=== PATIENT | female | born 1985 | race Caucasian/White ===

== ENCOUNTER 2018-08-19 21:50 | Inpatient (IN) | payer OTHER ==
[2018-08-19] MEDS: DEXTROSE 5%-LACTATED RINGERS 1,000 ML IV SCH (22:00)
[2018-08-19 22:47] VITALS: BMI 26.2
[2018-08-19 23:04] LABS: BASO % 0.1 % (0-2.0); EOS % 0.6 % (0-4.5); HEMATOCRIT 35.3 % (32.4-45.2); HEMOGLOBIN 12.4 GM/dL (10.7-15.3); LYMPH % 17.2 % (8-40); MCH 35.4 pg (25.7-33.7); MCHC 35.3 g/dl (32.0-36.0); MEAN CELL VOLUME 100.4 fl (80-96); MEAN PLT VOLUME 8.7 fl (7.5-11.1); NEUT % 75.1 % (42.8-82.8); PLATELET COUNT 149 K/MM3 (134-434); RBC 3.51 M/mm3 (3.60-5.2); RDW 12.4 % (11.6-15.6); WHITE BLOOD COUNT 7.3 K/mm3 (4.0-10.0)
[2018-08-19 23:20] LABS: INR 0.91 (0.83-1.09); PROTHROMBIN TIME (PATIENT) 10.7 SEC (9.7-13.0)
--- NOTE | 2018-08-19 23:22 | HP ---
Past Medical History - Admission History of Present Illness: 32 yo @ 38 2/7 wks by first trimester ultrasound, EDC 08/31/2018 uncomplicated Patient presents with chief complaint of leakage of clear fluid at 7:30 PM this evening. She reports movement and reports mild contractions. She denies vaginal bleeding. History Source: Patient Limitations to Obtaining History: No Limitations - Past Medical History Cardiovascular: No: HTN Pulmonary: No: Asthma Gastrointestinal: No: GERD ...: 1 ...Para: 0 ...Term: 0 ...: 0 ...Spon : 0 ...Induced : 0 ...Multiple Gestation: 0 ...LMP: 11/29/17 ... Weeks Gestation by Dates: 37.4 ...EDC by Dates: 09/05/18 ...EDC by Sono: 08/31/18 Heme/Onc: No: Anemia - Past Surgical History Past Surgical History: Yes: None Hx Myomectomy: No Hx Transabdominal Cerclage: No - Smoking History Smoking history: Never smoked Have you smoked in the past 12 months: No - Alcohol/Substance Use Hx Alcohol Use: No Home Medications - Allergies Allergies/Adverse Reactions: Allergies Allergy/AdvReac Type Severity Reaction Status Date / Time No Known Allergies Allergy Verified 08/19/18 22:33 - Home Medications Home Medications: Ambulatory Orders Vit 108/Iron/Folic AC [ One Tablet] 1 each PO DAILY 08/19/18 Family Disease History - Family Disease History Family History: Denies Review of Systems - Review of Systems Constitutional: reports: No Symptoms Neck: reports: No Symptoms Cardiovascular: reports: No Symptoms Respiratory: reports: No Symptoms Gastrointestinal: reports: No Symptoms Genitourinary: reports: No Symptoms Neurological: reports: No Symptoms Endocrine: reports: No Symptoms Hematology/Lymphatic: reports: No Symptoms Physical Exam - Maternity Vital Signs: Vital Signs Temperature 98.0 F 08/19/18 22:40 Pulse Rate 71 08/19/18 22:53 Respiratory Rate 20 08/19/18 22:53 Blood Pressure 124/69 08/19/18 22:53 O2 Sat by Pulse Oximetry (%) Constitutional: Yes: Well Nourished, No Distress, Calm HENT: Yes: Atraumatic Neck: Yes: Supple, Trachea Midline Cardiovascular: Yes: Regular Rate and Rhythm Lungs: Clear to auscultation - Abdominal Exam/OB Number of Fetuses: Single Presentation: Vertex Contractions: Yes Regularity: Regular Intensity: Unaware Monitor Mode: External Heart Rate (range): 145 Category: I Accelerations: Non-Uniform Decelerations: None - Vaginal Exam/OB Vaginal Bleediing: No Speculum Exam: No Dilatation (cm): FT Effacement (%): long Amniotic Membrane Status: Ruptured Amniotic Fluid: Yes: Clear Presentation: Vertex/Position Station: -4 - Physical Exam Musculoskeletal: Yes: WNL Edema: No ...Motor Strength: WNL Psychiatric: Yes: Alert, Oriented - Labs Lab Results: PNL: A positive, antibody negative, RPR NR; HBsAg neg; Rubella Immune; GBS neg; HIV neg Hemorrhage Risk Assessment - Risk Factors Medium Risk Factors: Yes: None High Risk Factors: Yes: None Risk Score: 1 Risk Level: Medium Risk Assessment/Plan 32 yo PROM 1. Admit to L&D 2. Consents reviewed and signed 3. Routine labs collected and sent 4. GBS neg 5. Category I FHT 6. Will proceed with expectant management, will offer pain medication upon patient request
[2018-08-19 23:23] LABS: ACTIVATED PTT 25.2 SECONDS (25.2-36.5)
[2018-08-19 23:34] LABS: ANION GAP 9 MMOL/L (8-16); BLOOD UREA NITROGEN 8 mg/dL (7-18); CALCIUM 8.7 mg/dL (8.5-10.1); CHLORIDE 106 mmol/L (98-107); CO2 21 mmol/L (21-32); CREATININE 0.6 mg/dL (0.55-1.3); GLUCOSE,RANDOM 144 mg/dL (74-106); POTASSIUM 3.6 mmol/L (3.5-5.1); SODIUM 137 mmol/L (136-145)
[2018-08-19] MEDS ORDERED: TUBERCULIN PPD 5 TU/0.1ML SYRINGE (IN PATIENT USE ONLY) ID ONE (23:45)
[2018-08-20] MEDS: DEXTROSE 5%-LACTATED RINGERS 1,000 ML IV SCH ×2 (02:45→09:30)
[2018-08-20] MEDS ORDERED: BUTORPHANOL TARTRATE 2 MG/ML VIAL IVPB ONE (05:45)
[2018-08-20] MEDS ORDERED: PROMETHAZINE HCL 25 MG/1 ML VIAL IVPB ONE (05:45)
[2018-08-20] MEDS ORDERED: OXYTOCIN 30 UNITS in 0.9% NS 30 UNIT/500 ML INFUS.BAG IVPB SCH (06:15)
--- NOTE | 2018-08-20 07:47 | PN ---
Ante-Partal Exam - Subjective Subjective: Patient comfortable, irregular contractions Vital Signs: Vital Signs Temperature 98.6 F 08/20/18 06:00 Pulse Rate 77 08/20/18 06:00 Respiratory Rate 18 08/20/18 06:00 Blood Pressure 100/54 L 08/20/18 06:00 O2 Sat by Pulse Oximetry (%) Bleeding: No Headache: No Visual changes: No Right upper quadrant pain: No - Contractions Contractions: Yes Regularity: Irregular Intensity: Mild/Mod Monitor Mode: External - Exam during Labor Heart Rate: 145 Variability: Moderate Category: I Monitor Accelerations: Present Monitor Decelerations: None - Intrapartum Hemorrhage Risk Medium Risk Factors: None High Risk Factors: None Risk Score: 0 Risk Level: Low Risk - Assessment/Plan Assessment/Plan: 32 yo PROM, on pitocin 1. Will continue pitocin per protocol 2. GBS neg 3. Patient declienes offer for pain medication 4. Category I FHT - fetus does not require intervention 5. Will continue to monitor
[2018-08-20] MEDS ORDERED: TUBERCULIN PPD 5 TU/0.1ML SYRINGE (IN PATIENT USE ONLY) ID ONE (10:00)
[2018-08-20] MEDS ORDERED: BUTORPHANOL TARTRATE 2 MG/ML VIAL ONE (11:47)
[2018-08-20] MEDS ORDERED: PROMETHAZINE HCL 25 MG/1 ML VIAL ONE (11:47)
[2018-08-20] MEDS: ELECTROLYTE-148 SOLN 1,000 ML IV SCH ×2 (13:20→16:15)
[2018-08-20] MEDS ORDERED: FENTANYL/BUPIVACAINE/NS/PF - PCEA - 50 ML DISP.SYRIN EP ONE ×2 (13:22→18:24)
--- NOTE | 2018-08-20 13:26 | PN ---
Progress Note (short form) - Note Progress Note: cx 2 cm 80 vx -3 mi, fhr cat 1, irregular contraction, wants epidural
[2018-08-20] MEDS ORDERED: LIDO 2%/EPI 1:200000 PRESRVFRE (20 ML SDVIAL) ONE (13:30)
[2018-08-20] MEDS ORDERED: BUPIVACAINE HCL/PF 0.25% (2.5MG/ML) 10 ML VIAL ONE ×2 (13:30→20:45)
[2018-08-20] MEDS ORDERED: NALOXONE HCL 0.4 MG/ML VIAL IVPUSH PRN (13:51)
[2018-08-20] MEDS ORDERED: FENTANYL/BUPIVACAINE/NS/PF - PCEA - 50 ML DISP.SYRIN EP SCH (14:00)
[2018-08-20] MEDS ORDERED: AMPICILLIN SODIUM 2 GM VIAL ONE (14:24)
[2018-08-20] MEDS ORDERED: AMPICILLIN - 2 GM in SODIUM CHLORIDE 100 ML IVPB ONE (14:30)
[2018-08-20] MEDS ORDERED: AMPICILLIN SODIUM 1 GM VIAL ONE (18:02)
[2018-08-20] MEDS: AMPICILLIN - 1 GM in SODIUM CHLORIDE 100 ML IVPB SCH (18:15)
--- NOTE | 2018-08-20 20:45 | PN ---
Progress Note (short form) - Note Progress Note: temp 99.5, fhr 160, cx 3 cm 80 vx -2 mr, advised c/section, risks discussed
[2018-08-20] MEDS ORDERED: BENZOCAINE 28 GM HEMORRHOIDAL OINTMENT PR PRN (20:46)
[2018-08-20] MEDS ORDERED: oxyCODONE HCL 5 MG TABLET PO PRN ×2 (20:46)
[2018-08-20] MEDS ORDERED: WITCH HAZEL 50% (TUCKS) 40 PAD/JAR PAD TP PRN (20:46)
[2018-08-20] MEDS ORDERED: METHYLERGONOVINE MALEATE 0.2 MG/1 ML AMP IM PRN (20:46)
[2018-08-20] MEDS ORDERED: BENZOCAINE 20% 57 GM BOTTLE TP PRN (20:46)
[2018-08-20] MEDS ORDERED: IBUPROFEN 800 MG/8 ML IJ IVPB PRN (20:46)
[2018-08-20] MEDS ORDERED: diphenhydrAMINE HCL 25 MG CAPSULE (FP) PO PRN (20:46)
[2018-08-20] MEDS ORDERED: PHENYLEPHRINE HCL 10 MG/1 ML SINGLE DOSE VIAL ONE (20:59)
[2018-08-20] MEDS ORDERED: OXYTOCIN 20 UNITS in 0.9% NS 20 UNIT/1,000 ML INFUS.BAG IV SCH (21:00)
[2018-08-20] MEDS ORDERED: DEXTROSE 5%-LACTATED RINGERS 1,000 ML IV SCH (21:00)
[2018-08-20] MEDS ORDERED: ceFAZolin SODIUM 1 GM VIAL ONE (21:01)
[2018-08-20] MEDS ORDERED: OXYTOCIN 10 UNITS/ML VIAL ONE (21:09)
[2018-08-20] MEDS ORDERED: ACETAMINOPHEN 1000 MG/100 ML VIAL (NON FORMULARY) IVPB ONE (22:03)
[2018-08-20] MEDS ORDERED: ONDANSETRON 4 MG/2 ML VIAL IVPUSH PRN (22:03)
[2018-08-20] MEDS ORDERED: IBUPROFEN 800 MG/8 ML IJ IVPB ONE (22:09)
[2018-08-20] MEDS ORDERED: OXYTOCIN 20 UNITS in 0.9% NS 20 UNIT/1,000 ML INFUS.BAG IV ONE (22:09)
[2018-08-21] MEDS: AMPICILLIN - 1 GM in SODIUM CHLORIDE 100 ML IVPB SCH (00:31)
[2018-08-21] MEDS: CEFAZOLIN 1 GM/D5W 1 GM/50 ML BAG IVPB SCH ×2 (01:28→11:12)
[2018-08-21 08:24] LABS: BASO % 0.2 % (0-2.0); EOS % 0.1 % (0-4.5); HEMATOCRIT 31.6 % (32.4-45.2); HEMOGLOBIN 10.9 GM/dL (10.7-15.3); LYMPH % 10.3 % (8-40); MCH 34.6 pg (25.7-33.7); MCHC 34.4 g/dl (32.0-36.0); MEAN CELL VOLUME 100.5 fl (80-96); MEAN PLT VOLUME 8.3 fl (7.5-11.1); NEUT % 82.4 % (42.8-82.8); PLATELET COUNT 135 K/MM3 (134-434); RBC 3.15 M/mm3 (3.60-5.2); RDW 12.2 % (11.6-15.6); WHITE BLOOD COUNT 10.2 K/mm3 (4.0-10.0)
--- NOTE | 2018-08-21 09:55 | PN ---
Progress Note (short form) - Note Progress Note: pod 1 doing well, no c/o CBC, BMP 08/21/18 08:00 08/19/18 22:50 Last Vital Signs Temp Pulse Resp BP Pulse Ox 97.8 F 70 18 113/63 99 08/21/18 08:00 08/21/18 08:00 08/21/18 08:00 08/21/18 08:00 08/20/18 23:58 abdomen soft, no distension, no cva uterus firm lochia mild no calf tenderness plan ambulate, advance diet DVP prophylaxis
[2018-08-21] MEDS: ENOXAPARIN NA (PORCINE) 40 MG/0.4 ML DISP.SYRIN SQ SCH (12:25)
[2018-08-21] MEDS: ACETAMINOPHEN 325 MG TABLET (FP) PO PRN ×2 (14:15→21:44)
[2018-08-21] MEDS: IBUPROFEN 600 MG TABLET (FP) PO PRN ×2 (14:16→21:44)
[2018-08-21] MEDS: SIMETHICONE 80 MG TAB.CHEW (FP) PO PRN ×2 (14:17→21:44)
--- NOTE | 2018-08-21 14:48 | PN ---
Progress Note (short form) - Note Progress Note: Post op day#1.S/P C Section under spinal with duramorph uneventful.Patient stable and has little pain for which she is on medication.No any anesthesia related problem.Patient DC from the anesthesia care.
[2018-08-21] MEDS ORDERED: BISACODYL 10 MG SUPP.RECT PR PRN (20:46)
--- NOTE | 2018-08-22 09:07 | PN ---
Progress Note (short form) - Note Progress Note: pod 2 s/p c/s doing well. ambulating CBC, BMP 08/21/18 08:00 08/19/18 22:50 Last Vital Signs Temp Pulse Resp BP Pulse Ox 98.8 F 86 20 100/62 99 08/22/18 00:00 08/22/18 00:00 08/22/18 00:00 08/22/18 00:00 08/20/18 23:58 abdomen soft, no distension, no cva incision dry, clean no calf tenderness lochia mild plan ambulate , cbc in am
[2018-08-22] MEDS: ENOXAPARIN NA (PORCINE) 40 MG/0.4 ML DISP.SYRIN SQ SCH (10:25)
[2018-08-22] MEDS: SIMETHICONE 80 MG TAB.CHEW (FP) PO PRN (13:22)
[2018-08-22] MEDS: IBUPROFEN 600 MG TABLET (FP) PO PRN (13:22)
[2018-08-22] MEDS: ACETAMINOPHEN 325 MG TABLET (FP) PO PRN (13:23)
[2018-08-22] MEDS ORDERED: SENNOSIDES/DOCUSATE COMBO (SENNA PLUS) TABLET (UD) PO PRN (22:00)
[2018-08-23] MEDS: ACETAMINOPHEN 325 MG TABLET (FP) PO PRN ×2 (06:26→17:03)
[2018-08-23] MEDS: IBUPROFEN 600 MG TABLET (FP) PO PRN ×2 (06:26→17:02)
[2018-08-23 08:37] LABS: BASO % 0.1 % (0-2.0); EOS % 1.3 % (0-4.5); HEMATOCRIT 31.4 % (32.4-45.2); LYMPH % 8.2 % (8-40); MCH 35.1 pg (25.7-33.7); MEAN CELL VOLUME 100.1 fl (80-96); MONO % 5.8 % (3.8-10.2); NEUT % 84.6 % (42.8-82.8); PLATELET COUNT 164 K/MM3 (134-434); RBC 3.13 M/mm3 (3.60-5.2); RDW 12.4 % (11.6-15.6); WHITE BLOOD COUNT 8.9 K/mm3 (4.0-10.0)
[2018-08-23] MEDS: ENOXAPARIN NA (PORCINE) 40 MG/0.4 ML DISP.SYRIN SQ SCH (09:21)
--- NOTE | 2018-08-23 10:26 | PN ---
Progress Note (short form) - Note Progress Note: pod 3 , s/p c/s no c/o had BM, ambulating CBC, BMP 08/23/18 07:57 08/19/18 22:50 Last Vital Signs Temp Pulse Resp BP Pulse Ox 98.3 F 73 20 107/70 99 08/23/18 08:30 08/23/18 08:30 08/23/18 08:30 08/23/18 08:30 08/20/18 23:58 abdomen soft, no distension, BS are present, incision dry, healing well no calf tenderness plan ambulate , for d/c home in am
[2018-08-23] MEDS: SIMETHICONE 80 MG TAB.CHEW (FP) PO PRN (17:02)
--- NOTE | 2018-08-23 18:06 | OP ---
DATE OF OPERATION: 08/20/2018 PREOPERATIVE DIAGNOSES: Failure of Pitocin induction, failure to dilate. POSTOPERATIVE DIAGNOSES: Failure of Pitocin induction, failure to dilate. PROCEDURE: Primary low segment transverse section. SURGEON: Rony Ryan MD ENERGY SALES CONSULTANT: GENE Yi ANESTHESIA: Epidural. ANESTHESIOLOGIST: ESTIMATED BLOOD LOSS: 500 mL. FINDINGS: Live baby boy. Apgars 9, 9. OPERATION: The patient was taken to the operating room. Adequate epidural anesthesia. Abdomen and perineum were prepped and draped. Pfannenstiel abdominal skin incision was made. Abdominal wall was cut [id number] until the peritoneum was exposed and incised. Upon entering the abdominal cavity, lower uterine segment was identified and uterovesical fold of the peritoneum established. Bladder was pushed down. Then, a low transverse uterine incision was made and the incision extended laterally. Amniotic sac was entered. Head was in occiput posterior position. A live baby boy was delivered. Apgars 9, 9. Placenta was delivered manually. Uterine cavity was cleared of all remaining tissue. Uterine incision was closed in 2 layers; 1st layer with 0 Biosyn continuous suture, the 2nd layer with 0 Biosyn imbricating the 1st layer. Bladder flap was closed with 0 Biosyn continuous suture. Both tubes and ovaries were checked and normal. No active bleeding was seen. All the lap, sponge, and instrument counts were correct and peritoneum was closed with 0 Biosyn continuous suture. Muscle layer brought together with interrupted suture of 0 Biosyn. Fascia was closed with 0 Biosyn continuous suture, subcutaneous fat with interrupted suture of 0 Biosyn, and the skin was closed with 4-0 Biosyn subcuticular continuous suture. The patient tolerated the procedure well and left the OR in good condition. RONY RYAN M.D. [id number]
--- NOTE | 2018-08-24 06:35 | DS ---
Physical Exam-MATE SHIP Vital Signs: Vital Signs Temperature 98.3 F 08/23/18 22:00 Pulse Rate 75 08/23/18 22:00 Respiratory Rate 18 08/23/18 22:00 Blood Pressure 120/61 08/23/18 22:00 O2 Sat by Pulse Oximetry (%) 99 08/20/18 23:58 Constitutional: Yes: Well Nourished, No Distress, Calm Eyes: Yes: WNL, Conjunctiva Clear, EOM Intact HENT: Yes: WNL, Atraumatic, Normocephalic Neck: Yes: WNL, Supple, Trachea Midline Cardiovascular: Yes: WNL, Regular Rate and Rhythm Respiratory: Yes: WNL, Regular, CTA Bilaterally Gastrointestinal: Yes: WNL ...Rectal Exam: Yes: WNL Renal/: Yes: WNL ....Post : Yes: Uterus firm, Uterus non-tender, Slight lochia rubra Breast(s): Yes: WNL Musculoskeletal: Yes: WNL Extremities: Yes: WNL Edema: No Integumentary: Yes: WNL Wound/Incision: Yes: Clean/Dry, Well Approximated, Sutures Intact Neurological: Yes: WNL, Alert, Oriented ...Motor Strength: WNL Psychiatric: Yes: WNL, Alert, Oriented Labs: CBC, BMP 08/23/18 07:57 08/19/18 22:50 Delivery - Delivery Section: Primary, Low Flap Transverse (no complication) Type of Anesthesia: Epidural, Spinal EBL (cc): 600 Delivery, Single - Stages of Labor Date 1st Stage Initiatied: 08/20/18 Time 1st Stage Initiated: 06:15 Date of Delivery: 08/20/18 Time of Delivery: 21:12 Time Placenta Delivered: 21:14 Placenta: Yes: Expressed - Condition of Infant 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/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 Present: Yes Name: Lin Kramer Infant Gender: Male Weight: 8 lb 3 oz Position: Left, OA Total Hours ROM (Hrs/Mins): 25h 27m - 1 Minute Total Score: 9 5 Minutes Total Score: 9 - [place] Feeding Plan Initial Plan: Exclusive throughout hospitalization Discharge Summary Reason For Visit: ADMIT LABOR Procedures: Principal: primary LST c/s Hospital Course: no complication Condition: Good - Instructions Diet, Activity, Other Instructions: regular diet, follow up office 1 week, if fever, heavy vaginal bleeding , sever pain call md Referrals: Stalin Ryan MD [Staff Physician] - Disposition: HOME - Home Medications Comprehensive Discharge Medication List: Ambulatory Orders Vit 108/Iron/Folic AC [ One Tablet] 1 each PO DAILY 08/19/18 Ibuprofen [Motrin -] 600 mg PO TID #90 tablet 08/23/18
[2018-08-24 07:50] VITALS: BP 117/70; PULSE 85; TEMP 99.1
[2018-08-24] MEDS: ENOXAPARIN NA (PORCINE) 40 MG/0.4 ML DISP.SYRIN SQ SCH (09:08)
--- NOTE | 2018-08-27 16:55 | PATH ---
Surgical Pathology Report Patient Name: CARMEN INGRAM [facility]. Rec. 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 Specimen(s) Received PLACENTA Clinical History , 38.2 weeks' gestation, prolonged rupture of membranes Final Diagnosis PLACENTA: THIRD TRIMESTER PLACENTA. TRIVASCULAR CORD. MEMBRANES WITH NO DIAGNOSTIC ABNORMALITIES. Electronically Signed Mayur Elias M.D. Gross Description The specimen is received fresh labeled placenta and is a 495 gram, 21.0 x 17.0 x 2.2 cm. placenta with attached membranes and umbilical cord. The attached membranes are rachel, translucent with focal opacities and insert marginally. The umbilical cord measures 28 cm. in length and averages 1.3 cm. in diameter. The cord inserts eccentrically, 1.5 cm. to the nearest margin. No true knots or strictures are identified. Cut surface of the umbilical cord reveals 3 vessels. The surface is lezama-blue with minimal fibrin deposition and appropriate caliber vessels. The maternal surface is red-brown with focal defects. Sectioning reveals red-brown, spongy parenchyma. No lesions are identified. Stereo Equipment Repairer sections are submitted in three cassettes as follows: 1- membrane rolls and umbilical cord; 2-3- full thickness sections of placenta. /08/25/2018 [facility]08/25/2018
== END 2018-08-24 11:50 | disposition home or self-care (01) | DRG 540 ==
LOC: JLDR 21:50 → J3W 08-20 23:30
PROVIDERS: ADMIT Obstetrics & Gynecology; ATTEND Obstetrics & Gynecology
PROC: 10D00Z1 Extraction of Products of Conception, Low, Open Approach (ICD-10-PCS; principal; 2018-08-20)
DX: O62.0 Primary inadequate contractions (principal); O61.0 Failed medical induction of labor; Z3A.38 38 weeks gestation of pregnancy; Z37.0 Single live birth
CPT/HCPCS: 36415; 80048; 85025; 85610; 85730; 86593; 86850; 86900; 86901; 88307-TC